=== PATIENT | male | born 1965 | race Caucasian/White ===

== ENCOUNTER 2017-10-17 16:33 | Emergency (ER) | payer SELFPAY ==
[~2017-10-17] VITALS: Ht 177.8 cm; Wt 86.0 kg
[~2017-10-17 16:33] MED LIST: PENI500T PO; TRAM50 PO
[2017-10-17 16:53] VITALS: BP 176/92; PULSE 80; RESP 16; TEMP 98.1; O2SAT 98
[2017-10-17] MEDS ORDERED: TRAM50TA PO (18:16)
[2017-10-17] MEDS ORDERED: PENI500T PO (18:16)
--- NOTE | 2017-10-17 18:18 | PD ---
HPI Chief Complaint: Oral / Dental Pain or Problem Time Seen by Provider: 17:52 Travel History International Travel<30 days: No Contact w/Intl Traveler<30days: No Traveled to known affect area: No History of Present Illness HPI This patient complains of dental pain. 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 He is trying to get to a dentist to get his teeth pulled and get dentures. Denies fever. Symptoms severity is mild to moderate PFSH Past Medical History Medical History: Denies Significant Hx Diminished Hearing: No Tetanus Vaccination: Unknown Influenza Vaccination: No Social History Alcohol Use: Yes (occassionally ) Tobacco Use: No ("quit 20 days ago") Substance Use: No Allergies-Medications (Allergen,Severity, Reaction): Coded Allergies: No Known Allergies (Verified Adverse Reaction, Unknown, 10/17/17) Reported Meds & Prescriptions Reported Meds & Active Scripts Active No Active Prescriptions or Reported Medications Review of Systems General / Constitutional: No: Fever HENT: No: Headaches Cardiovascular: No: Chest Pain or Discomfort Respiratory: No: Cough Physical Exam Narrative SKIN: Focused skin assessment reveals no rash or ulcers. Skin is warm and dry. Palpation shows no induration or nodules. Psych: Normal mood and affect. Normal insight and judgment. NECK: Symmetrical appearance, midline trachea. No mass or crepitus. Thyroid without enlargement, tenderness, or mass. Oral cavity:poor dentition with most teeth missing and several ones remaining that are rotted out. No obvious gingival abscess, uvula midline Data Data Last Documented VS Vital Signs Date Time Temp Pulse Resp B/P (MAP) Pulse Ox O2 Delivery O2 Flow Rate FiO2 10/17/17 16:53 98.1 80 16 176/92 (120) 98 MDM Medical Decision Making Medical Screen Exam Complete: Yes Emergency Medical Condition: Yes Medical Record Reviewed: Yes Differential Diagnosis Gingivitis, cavity, abscess Narrative Course I have reviewed the patient's electronic medical record. I gave him a week of penicillin and wrote him something for pain Patient needs dental follow-up Diagnosis Primary Impression: Pain, dental Additional Instructions: The patient was advised to follow up with dentist and return if they worsen. The patient was warned about potential sedation for the medications they will receive on prescription. Med/Other Pt SpecificInfo: Prescription(s) given Scripts Tramadol (Tramadol) 50 Mg Tab 50 MG PO Q6H Y for PAIN, #10 TAB 0 Refills Prov: Kole Tabor MD 10/17/17 Penicillin V Potassium (Penicillin V Potassium) 500 Mg Tab 500 MG PO Q6H for Infection for 7 Days, #28 TAB 0 Refills Prov: Kole Tabor MD 10/17/17 Disposition: 01 DISCHARGE HOME Condition: Stable Kole Tabor MD Oct 17, 2017 18:18
== END 2017-10-17 18:26 | disposition home or self-care (01) ==
LOC: PHED 16:33 → PHEFT 18:26
DX: K08.89 Other specified disorders of teeth and supporting structures (principal); Z87.891 Personal history of nicotine dependence
CPT/HCPCS: 99284